=== PATIENT | male | born 1960 | race Caucasian/White ===

== ENCOUNTER 2017-02-24 12:38 | Day surgery (SDC) | payer OTHER ==
[2017-02-17 10:02] LABS: HEMATOCRIT 45.6 % (40.0-51.0); HEMOGLOBIN 15.9 g/dL (13.6-17.8)
--- NOTE | ~2017-02-24 | OP ---
Record Of Operation [facility] [address] [place]. [address] NAME: JONATHAN AWAD : 56 STATUS : REG [facility]#: [id number] AGE: 56 ADM/REG DATE : 02/24/17 MR#: [id number] REPORT SERV DATE: 02/24/17 DICTATED BY: SETH FLORES III DATE: 02/24/17 REPORT STATUS : Draft TRANSCRIBED BY: MODL DATE: 02/24/17 DATE OF PROCEDURE: 02/24/2017 PREOPERATIVE DIAGNOSIS: Urethral meatal stenosis. POSTOPERATIVE DIAGNOSIS: Urethral meatal stenosis. PROCEDURE: 1. Cystoscopy. 2. Urethral dilation. 3. Urethral meatotomy. SURGEON: Seth Flores M.D. ANESTHESIA: General. SPECIMENS: None. DRAINS: 16-Hungarian Soto catheter. BLOOD LOSS: Less than 5 mL. INDICATION: Mr. 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 He has a very small urethral meatus. He does have lower urinary tract symptoms. His consent is obtained for cystoscopy and urethral dilation. PROCEDURE IN DETAIL: Consent was obtained, the patient was identified, and was taken to the OR and put to sleep. He was positioned in the low lithotomy position and prepped and draped in usual fashion. The Lexus sounds were used to dilate the small urethral meatus to a 24-Hungarian, it was rather tight. Cystoscopy was performed showing an open prostatic urethra. The bladder was moderately trabeculated, but there were no tumors, stones, or foreign bodies noted except caused the tightness of the meatus. The patient would ultimately require meatotomy, therefore straight clamp was placed across the ventral aspect of the urethral meatus and left stent for approximately a minute and the crimped tissue was then cut and the skin edges reapproximated with 3-0 chromic in a running fashion. A 16-Hungarian Soto catheter was then placed in the bladder and the balloon inflated to 10 mL. The patient was awakened and taken to recovery in stable condition. PH/MODL Seth Flores III, M.D. / [id number] Record Of Operation [facility] [address] [place]. [address] NAME: JONATHAN AWAD ION SR : 56 STATUS : REG [facility] PAT#: [id number] AGE: 56 ADM/REG DATE : 02/24/17 MR#: [id number] REPORT SERV DATE: 02/24/17 DICTATED BY: SETH FLORES III DATE: 02/24/17 REPORT STATUS : Draft TRANSCRIBED BY: LUIS MIGUEL DATE: 02/24/17 CC: Joshua Reyes III, CRYSTAL
[~2017-02-24 12:38] MED LIST: ACET500CAP PO; FLEX PO; FLOMAX4 PO; MED FOR DEPRESSION PO; NEUR600 PO; NORCO1 TAB PO
== END 2017-02-24 18:16 | disposition home or self-care (01) ==
LOC: SDC 12:38
PROVIDERS: Urology
PROC: 0T7D8ZZ Dilation of Urethra, Via Natural or Artificial Opening Endoscopic (ICD-10-PCS; principal; 2017-02-24 14:00)
DX: N35.9 Urethral stricture, unspecified (principal); J44.9 Chronic obstructive pulmonary disease, unspecified; F32.9 Major depressive disorder, single episode, unspecified; F17.210 Nicotine dependence, cigarettes, uncomplicated; G47.33 Obstructive sleep apnea (adult) (pediatric); G89.29 Other chronic pain; Z88.8 Allergy status to other drugs, medicaments and biological substances; Z88.2 Allergy status to sulfonamides; Z79.891 Long term (current) use of opiate analgesic; Z79.899 Other long term (current) drug therapy; Z98.890 Other specified postprocedural states
CPT/HCPCS: 85014; 85018; 93005; A9270-GY; J2250; J2405; J3010